=== PATIENT | male | born 1975 | race Caucasian/White ===

== ENCOUNTER 2023-03-16 14:04 | Outpatient (CLI) | payer BC, SELFPAY ==
--- NOTE | ~2023-03-16 | CT_ITS ---
EXAMINATION: CT abdomen pelvis wo con DATE: 03/16/2023 14:39 INDICATION: Kidney stone. Abdominal pain. TECHNIQUE: Computed tomography (CT) of the abdomen and pelvis was performed without intravenous contr ast. Automated exposure control and iterative reconstruction technique were employed. The dose-length product was 322.19 mGy-cm. COMPARISON: None. FINDINGS: The visualized portions of the lung bases are clear without pneumonia or pleural effusion. The heart size is normal. No pericardial effusion. The liver, gallbladder, spleen, pancreas, adrenal glands, and kidneys are normal. There is no urolithiasis. The prostate is moderately enlarged. There are no dilated loops of bowel. The appendix is normal. There are no pathologically enlarged lymph nod es. There is no free intraperitoneal fluid. There are chronic bilateral L5 pars defects. There is 5 m m anterolisthesis of L5 on S1. There is severe lower lumbar spondylosis. IMPRESSION: 1. No urolithiasis. Reviewed, dictated and finalized at location E. IMPRESSION: 1. No urolithiasis.
== END 2023-03-16 14:05 | disposition home or self-care (01) ==
PROVIDERS: PCP Family Medicine; Visit Provider Family Medicine
DX: R03.0 Elevated blood-pressure reading, without diagnosis of hypertension (principal); R10.9 Unspecified abdominal pain; R82.90 Unspecified abnormal findings in urine
CPT/HCPCS: 74176

== ENCOUNTER 2023-11-20 00:57 | Day surgery (SDC) | payer BC, SELFPAY ==
[2023-10-26 11:41] VITALS: BMI 22.6
--- NOTE | 2023-11-16 10:52 | SUR.PREOP ---
Patient called regarding upcoming procedure. Reviewed preop instructions, appointment times, and procedure prep.
[2023-11-20 11:02] VITALS: BP 143/94; PULSE 109; RESP 18; TEMP 36.1; O2SAT 99
[2023-11-20] MEDS: LACTATED RINGERS 1,000 ML 150 ML IV CONT (11:10)
--- NOTE | 2023-11-20 12:01 | WPDANESEPPF ---
Anes - Initial Pre Proc Eval Procedure: Operation Date: 11/20/23 12:30 Proposed Procedures p Screening Colonoscopy - Kaleb Moore MD Date/Time: 11/20/23 12:01 Surgeon: Kaleb Moore MD Pre Op Diagnosis: neoplasm screening Patient Data Age: 48 Gender: M Height: 1.85 m Weight: 78 kg Last Vital Signs Temp 97 F L 11/20/23 11:02 Pulse 109 H 11/20/23 11:02 Resp 18 11/20/23 11:02 BP 143/94 H 11/20/23 11:02 Pulse Ox 99 11/20/23 11:02 O2 Del Method Room Air 11/20/23 11:02 Allergies Allergy/AdvReac Type Severity Reaction Status Date / Time No Known Allergies Allergy Verified 11/20/23 11:01 Home Medications Medication Instructions Recorded Confirmed Type No Home Medications 03/02/23 11/20/23 History Patient hx anesthesia problems: none Family hx anesthesia problems: none Results Review: All pre-operative results and documents have been reviewed as part of the pre-operative evaluation. [facility] Family History Family History Father Diabetes mellitus Mother Hypertension Grandparent Cancer Grandparent Heart disease Social History Social History Smoking status: Never smoker Alcohol intake: never Drinks per week: 1 Alcohol use details: only drinks Whiskey/Cola a couple times every 3-4 months Substance use: never Substance use type: does not use Lack of Transportation: No Lack of Food: Never True Current Housing: I Have Housing Concerned About Future Housing: Decline to Answer Difficulty Paying Gas/Electric Bills: Decline to Answer Difficulty Paying for Meds: Decline to Answer Currently Unemployed: Decline to Answer Education: Don't Know Difficulty w/ Childcare or Family Care: Decline to Answer Living arrangements: with family 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/Education: occupation 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 Gender identity (if verbalized by the patient): Male Sexual Orientation (if Verbalized by the Patient): Straight or Heterosexual Spiritual care concerns: No Anes - Eval Final PreProcedure Day of Procedure 11/20/23 12:01 Patient weight: normal Heart: regular rate and rhythm Lungs: clear to auscultation Airway: Mallampati scale class II Neurological: alert and oriented Last oral intake: >/= 8 hours ASA classification: I Emergent: no Anesthetic plan: proceed Anesthesia type and monitoring: general GIVS and standard monitoring Results Review: All pre-operative results and documents have been reviewed as part of the pre-operative evaluation. Informed Consent: The patient's anesthetic plan and its attendant risks and benefits were discussed with the patient/family/POA. Questions were solicited and answers provided to the satisfaction of the patient/family/POA.
--- NOTE | 2023-11-20 12:23 | PM.HPGS ---
History of Present Illness History of Present Illness Consent: Risks, benefits, and alternatives have been discussed and questions answered. Patient agrees to proceed with procedure. Chief complaint: neoplasm screening Narrative: René Perales III is a 48 year old male here for first screening colonoscopy Review of Systems Constitutional: Constitutional: Denies headache(s) and Denies weakness Eyes: Eyes: Denies blurry vision ENT: Reports Normal hearing present, Denies headache(s) and Denies neck pain Cardiovascular: Cardiovascular: Denies chest pain and Denies dyspnea Respiratory: Respiratory: Denies dyspnea Gastrointestinal: Gastrointestinal: Reports no additional gastrointestinal complaints Genitourinary: Genitourinary: Denies dysuria Musculoskeletal: Musculoskeletal: Denies neck pain Integumentary/Breasts: Skin/Breast: Denies dry skin Neurologic: Reports Normal hearing present, Denies headache(s) and Denies weakness Psychiatric: Psychiatric: Denies anxiety Endocrine: Endocrine: Denies change in body appearance Hematologic/Lymphatic: Hematologic/Lymphatic: Denies easy bleeding Allergic/Immunologic: Allergic/Immunologic: Denies urticaria [facility] Family History Family History Father Diabetes mellitus Mother Hypertension Grandparent Cancer Grandparent Heart disease Social History Social History Smoking status: Never smoker Alcohol intake: never Drinks per week: 1 Alcohol use details: only drinks Whiskey/Cola a couple times every 3-4 months Substance use: never Substance use type: does not use Lack of Transportation: No Lack of Food: Never True Current Housing: I Have Housing Concerned About Future Housing: Decline to Answer Difficulty Paying Gas/Electric Bills: Decline to Answer Difficulty Paying for Meds: Decline to Answer Currently Unemployed: Decline to Answer Education: Don't Know Difficulty w/ Childcare or Family Care: Decline to Answer Living arrangements: with family Occupation/Education: occupation 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 Gender identity (if verbalized by the patient): Male Sexual Orientation (if Verbalized by the Patient): Straight or Heterosexual Spiritual care concerns: No Meds Home Medications and Allergies Home Medications Medication Instructions Recorded Confirmed Type No Home Medications 03/02/23 11/20/23 History Allergies Allergy/AdvReac Type Severity Reaction Status Date / Time No Known Allergies Allergy Verified 11/20/23 11:01 Vital Signs Vital Signs - 24 hr 11/20/23 11:02 Temperature 97 F L Pulse Rate 109 H Respiratory Rate 18 Blood Pressure 143/94 H Pulse Oximetry 99 Oxygen Delivery Room Air Exam Const: General: comfortable and no acute distress HENMT: Face/Nose/Sinus: Normal nares present Eyes: General: appearance normal, both eyes and all related structures Neck: Neck: no JVD Resp: Auscultation: clear to auscultation bilaterally Cardio: Rate: regular rate Rhythm: regular rhythm GI: Inspection: non-distended GI Palp: Yes Soft to palpation Skin: General skin exam: normal color Neuro: General: gait normal Speech: normal speech Extrem: General: normal to inspection Psych: Mental Status: mental status grossly normal Assessment and Plan Assessment and plan (1) Colon cancer screening: Code(s): Z12.11 - Encounter for screening for malignant neoplasm of colon Status: Acute Assessment and Plan: colonoscopy
[2023-11-20 12:37] VITALS: BP 117/88; PULSE 97; RESP 18; O2SAT 97
[2023-11-20 12:47] VITALS: BP 113/78; PULSE 88; RESP 18; O2SAT 97
[2023-11-20 12:57] VITALS: BP 125/86; PULSE 87; RESP 14; O2SAT 97
== END 2023-11-20 13:00 | disposition home or self-care (01) ==
PROVIDERS: PCP Family Medicine; Visit Provider Internal Medicine Gastroenterology
PROC: 0DJD8ZZ Inspection of Lower Intestinal Tract, Via Natural or Artificial Opening Endoscopic (ICD-10-PCS; CPT 45378; principal; 2023-11-20 12:30)
DX: Z12.11 Encounter for screening for malignant neoplasm of colon (principal); K64.8 Other hemorrhoids
CPT/HCPCS: 45378; J2704; J7120